=== PATIENT | male | born 1975 | race Hispanic/Latino ===

== ENCOUNTER 2024-04-26 18:27 | Emergency (ER) | payer OTHER ==
[~2024-04-26] VITALS: Ht 170.2 cm; Wt 77.1 kg
[2024-04-26 18:40] VITALS: PULSE 103; RESP 18; TEMP 98.7
[2024-04-26] MEDS: LEVETIRACETAM 500MG/5ML VIAL 1,000 MG in SODIUM CHLORIDE 0.9% 100 ML IV ONE (19:25)
[2024-04-26] MEDS: SODIUM CHLORIDE 0.9% 1000ML 1,000 ML IV STA (19:25)
[2024-04-26] MEDS ORDERED: KEPPRA500 MG PO (20:43)
[2024-04-26 21:00] VITALS: BP 121/84; PULSE 90; RESP 16; TEMP 98.5; O2SAT 98
== END 2024-04-26 21:00 | disposition home or self-care (01) ==
LOC: FSED 18:35
DX: R56.9 Unspecified convulsions (principal); R51.9 Headache, unspecified; E11.65 Type 2 diabetes mellitus with hyperglycemia; E78.5 Hyperlipidemia, unspecified; G47.00 Insomnia, unspecified
CPT/HCPCS: 70450; 80048; 80307; 85025; 93005; 99284; J1953; J7030; J7050